=== PATIENT | male | born 1950 | race Caucasian/White ===

== ENCOUNTER 2018-03-29 10:32 | Outpatient (CLI) | payer MEDICARE ==
--- NOTE | 2018-03-29 18:14 | CT ---
CT ABDOMEN AND PELVIS WITH AND WITHOUT CONTRAST: Date: 03/29/18 Multiple axial tomograms obtained through the abdomen and pelvis both pre and post IV contrast. Postc ontrast images were obtained in a portal venous and delayed venous phase. INDICATION: Hematuria. Prostatic hyperplasia. Comparison made to CT abdomen and pelvis dated 12/21/13. FINDINGS: Images through the lung bases are clear. Tiny cyst in the anterior left lobe of the liver is stable. The liver and spleen are otherwise unrema rkable. Pancreas unremarkable. Review of the kidneys on the noncontrast shows no evidence of renal or urinary tract calculus. The ur eters are normal caliber. There is a prominent parapelvic cyst in the left renal pelvis, which is confirmed on the delayed stud y. This cyst measures 4.0 cm width x 2.0 cm. It does displace the renal pelvis and ureter. There is a small exophytic cyst from the left kidney measuring approximately 1.0 cm, which is stable from the prior exam. Ureters appear unremarkable. The urinary bladder is mildly distended. Prostate is enlarged and does impinge on the floor of the bladder. There is question of mild bladder wall thickening. Small bowel loops appear normal. Aorta is calcified, but normal caliber. Nonspecific paraaortic lymph nodes are seen. These are stable from 2014. IMPRESSION: 1. Left parapelvic cyst mildly distorting the left renal pelvis. 2. Small exophytic cyst in the left kidney is stable. 3. Prostatic hypertrophy impinging on and indenting the floor of the bladder. Mild bladder wall thic kening, although the bladder is poorly distended. POS: ANA ROSA
== END 2018-03-29 10:33 | disposition home or self-care (01) ==
LOC: BICCT 10:32
PROVIDERS: ATTEND Urology
DX: N40.1 Benign prostatic hyperplasia with lower urinary tract symptoms (principal); N32.89 Other specified disorders of bladder; Z87.442 Personal history of urinary calculi; Z87.448 Personal history of other diseases of urinary system; R97.20 Elevated prostate specific antigen [PSA]; R31.0 Gross hematuria; R35.1 Nocturia
CPT/HCPCS: 36415; 74178; 82565

== ENCOUNTER 2018-11-22 14:34 | Outpatient (CLI) | payer MEDICARE ==
--- NOTE | 2018-11-23 09:33 | MRI ---
MRI OF THE PROSTATE WITHOUT AND WITH CONTRAST: COMPARISON: None. HISTORY: Elevated PSA. Recent prostate biopsy in March. TECHNIQUE: Multiplanar, multisequence MR images were obtained in the prostate without and with IV contrast. FINDINGS: There is moderate hypertrophy of the central gland consistent with BPH. No suspicious low T2 signal lesion is seen in the prostate. No restricted diffusion or low signal is seen on the ADC map. No ab normal enhancement is seen. The seminal vesicles and neurovascular bundles appear intact. No pelvic adenopathy is seen. No marrow signal abnormality is present. IMPRESSION: PIRADS category 2 - low likelihood that a clinically significant cancer is present. POS: ANA ROSA
== END 2018-11-22 14:35 | disposition home or self-care (01) ==
LOC: TBSIIMAG 14:34
PROVIDERS: ATTEND Urology
DX: R97.20 Elevated prostate specific antigen [PSA] (principal)
CPT/HCPCS: 72197

== ENCOUNTER 2018-12-15 13:47 | Outpatient (CLI) | payer MEDICARE ==
--- NOTE | 2018-12-15 14:43 | ULT ---
Bilateral renal ultrasound CLINICAL INDICATION: Renal cyst COMPARISON: CT abdomen and pelvis on 03/29/2018. FINDINGS: Right kidney: There is no evidence of a renal mass, renal calculus, or hydronephrosis seen. The right kidney measures 11.4 cm in length. Left kidney: There is a small exophytic 0.8 cm anechoic cystic lesion superior pole left kidney demon strating sonographic characteristics most compatible with a cyst. There is an anechoic area present within the region of the renal sinus fat lower pole left kidney shown to represent parapelvic renal c ysts on prior CT examination. No renal calculus is seen. The left kidney measures 11.2 cm in length. Urinary bladder: Distended and demonstrates normal sonographic appearance. The ureteral jets are seen bilaterally on color flow evaluation. The prostate gland does appear prominent in size. IMPRESSION: 1. Normal-appearing right kidney. 2. Inferior pole left renal parapelvic cysts with small exophytic superior pole left renal cyst. 3. Prominence of the prostate gland. This is better imaged and evaluated on prior CT exam.
== END 2018-12-15 13:48 | disposition home or self-care (01) ==
LOC: BICULT 13:47
PROVIDERS: ATTEND Urology
DX: N28.1 Cyst of kidney, acquired (principal); Z87.448 Personal history of other diseases of urinary system; Z87.442 Personal history of urinary calculi
CPT/HCPCS: 76770

== ENCOUNTER 2019-01-04 06:52 | Inpatient (IN) | payer MEDICARE ==
[2019-01-04] MEDS ORDERED: cefTRIAXone\\ROCEPHIN 2 GM VIAL ONE (07:30)
[2019-01-04] MEDS ORDERED: Sodium Chloride 0.9% 100 ML ONE (07:30)
[2019-01-04] MEDS ORDERED: Scopolamine 1.5 mg/72 hour Patch ONE (07:59)
[2019-01-04] MEDS ORDERED: Fentanyl 250 MCG/5 ML VIAL ONE (11:00)
[2019-01-04] MEDS ORDERED: diphenhydrAMINE 50 MG/ML VIAL ONE (11:38)
[2019-01-04] MEDS ORDERED: Lidocaine 1% PF 5 ML VIAL ONE (11:38)
[2019-01-04] MEDS ORDERED: Ondansetron PF 4 MG/2 ML Vial ONE (11:38)
[2019-01-04] MEDS ORDERED: ePHEDrine 50 MG/ML VIAL ONE (11:38)
[2019-01-04] MEDS ORDERED: Rocuronium Bromide 10 MG/ML (10ML VIAL) ONE (11:38)
[2019-01-04] MEDS ORDERED: PHENYLEPHRINE-NS 100 MCG/ML 10 ML SYRINGE ONE (11:38)
[2019-01-04] MEDS ORDERED: Dexamethasone 20 MG/5 ML VIAL ONE (11:38)
[2019-01-04] MEDS ORDERED: Glycopyrrolate 0.2 MG/ML 5 ML SYRINGE ONE (11:38)
[2019-01-04] MEDS ORDERED: PROPOFOL 200 MG/20 ML VIAL ONE (11:38)
[2019-01-04] MEDS ORDERED: Morphine 4 MG/ML VIAL SLOW IVP PRN ×2 (13:37)
[2019-01-04] MEDS ORDERED: Acetaminophen 500 MG TAB PO PRN (13:37)
[2019-01-04] MEDS ORDERED: diphenhydrAMINE 50 MG/ML VIAL IVP PRN (13:37)
[2019-01-04] MEDS ORDERED: Bisacodyl 10 MG SUPP PR PRN (13:37)
[2019-01-04] MEDS ORDERED: Mag-Al 1200 mg/1200 mg/30 ML UDCUP PO PRN (13:37)
[2019-01-04] MEDS ORDERED: HYDROcodone/Acetaminophen 5/325 mg Tablet PO PRN ×2 (13:37)
[2019-01-04 14:34] LABS: #Lymphocytes 0.7 thou/uL (1.20-3.40); #Monocytes 0.2 thou/uL (0.11-0.59); #Neutrophils 10.7 thou/uL (1.40-6.50); %Basophils 0.2 % (0.0-1.0); %Eosinophils 0.2 % (0.0-10.0); %Lymphocytes 6.2 % (21.0-51.0); %Monocytes 1.4 % (0.0-10.0); Hemoglobin 13.9 g/dL (14.0-18.0); Mean Corpuscular HGB CONC 32.7 g/dL (32.0-36.0); Mean Corpuscular Hemoglobin 29.5 pg (27.0-31.0); Mean Corpuscular Volume 90.3 fL (78.0-98.0); Platelet Count 189 thou/uL (130-400); Red Blood Cell (RBC) Count 4.71 mill/uL (4.70-6.10); White Blood Cell (WBC) Count 11.6 thou/uL (4.8-10.8)
--- NOTE | 2019-01-04 14:36 | OP ---
DATE OF PROCEDURE: 01/04/2019 PREOPERATIVE DIAGNOSES: 1. A 68-year-old male with history of severe BPH symptoms, unable to tolerate Flomax. 2. History of recurrent prostatitis. 3. History of elevated PSA, biopsy negative for malignancy x2. 4. MRI demonstrating no suspicious lesion. POSTOPERATIVE DIAGNOSES: 1. A 68-year-old male with history of severe BPH symptoms, unable to tolerate Flomax. 2. History of recurrent prostatitis. 3. History of elevated PSA, biopsy negative for malignancy x2. 4. MRI demonstrating no suspicious lesion. PROCEDURES PERFORMED: Cystoscopy, transurethral resection of prostate. ANESTHESIA: General. COMPLICATIONS: None apparent. DISPOSITION: To recovery room in stable condition. IV FLUIDS: 1600 mL. ESTIMATED BLOOD LOSS: 500 mL. SPECIMEN: TUR of prostate. INTRAOPERATIVE FINDINGS: Trilobar hyperplasia of the prostate with small median lobe, severely obstructing lateral lobes. Urethra grossly unremarkable. INDICATIONS FOR PROCEDURE AND HISTORY: Mr. Briones is a pleasant 68-year-old male with history of elevated PSA, chronic prostatitis, previously followed by Dr. Nunes. He underwent prostate biopsy x2, demonstrating no evidence of malignancy. MRI 3T negative for enhancing lesion of concern. He is unable to tolerate alpha antagonist due to severe nasal congestion, nose bleeds. He was unable to tolerate Rapaflo as well, and he has been managed with Avodart only. As his biopsy and MRI are negative for malignancy, he desires to proceed with TURP. I did obtain a volume study and due to enlarged prostate volume of significant size, he is not a candidate for UroLift. Therefore, presents for TURP. Risks and complications and indications for the procedure were reviewed with him in detail including, but not limited to, bleeding, pain, infection, injury to adjacent organs, urosepsis, bladder neck contracture, urethral stricture, clot retention, urethral/bladder injury, sepsis , incontinence. All questions were answered to his satisfaction. He desired to proceed. DESCRIPTION OF PROCEDURE: After an informed consent was signed, the patient was taken to the operating room, placed in a dorsal lithotomy position with the genital area prepped and draped in the usual surgical sterile fashion. Bilateral NAHOMI hose, SCDs, and broad-spectrum antibiotics were provided. A 21-Djiboutian cystoscope was utilized for cystoscopy, which demonstrated trilobar hyperplasia of the prostate with a small intravesical median lobe. He does have severely obstructing lateral lobes with high median bar. The UOs were identified somewhat close to the median lobe component and this was kept out of harm's way the entire time. At this time, we transitioned to a 26-Djiboutian resectoscope with a visual obturator, passed to the bladder under visual guidance. We then transitioned to a Gyrus bipolar, and transurethral resection of the prostate was performed. We took the median lobe down first, then proceeded to perform lateral resection in a classic Ebony fashion. He did have significant oozing throughout the procedure and this is likely reflective of a history of chronic prostatitis. However, we did obtain good hemostasis throughout the procedure until the end with no significant EBL of concern. His median lobe was taken down. We proceeded to take down his lateral lobes that are obstructing. At the end of the procedure, he had a nice wide bladder neck. All prostatic chips were evacuated with StemCyte evacuator. A 22-Djiboutian, 3-way, 30 mL was able to be passed without significant issues. A 30 mL insufflated, attached to gravity, and CBI at a low rate demonstrating light pink to clear urine. He will be monitored overnight with CBI. Pending urine output, we will consider voiding trial tomorrow morning with CBI held. Job ID: [id number] [facility]
[2019-01-04] MEDS ORDERED: B & O ONE (14:48)
[2019-01-04 14:54] LABS: Anion Gap 10 mmol/L (10-20); BUN (Urea Nitrogen) 13 mg/dL (8.4-25.7); Calc. Creatinine Clearance 103 mL/min (70-130); Calcium 8.6 mg/dL (7.8-10.44); Carbon Dioxide 24 mmol/L (23-31); Chloride 111 mmol/L (98-107); Estimated GFR-MDRD Greater than 90; Glucose 125 mg/dL (80-115); Potassium 3.8 mmol/L (3.5-5.1); Sodium 141 mmol/L (136-145)
[2019-01-04] MEDS ORDERED: Fentanyl 100 MCG/2 ML VIAL ONE (14:56)
[2019-01-04] MEDS: Dutasteride 0.5 MG CAP PO SCH (22:04)
[2019-01-04] MEDS: Famotidine/PF 20 mg/2ml Vial SLOW IVP SCH (22:05)
[2019-01-04] MEDS: Docusate 100 MG CAP PO SCH (22:05)
[2019-01-04 22:20] VITALS: BMI 24.3
[2019-01-05] MEDS: Sodium Chloride 0.9% 1,000 ML IV SCH ×4 (00:05→15:10)
[2019-01-05 06:34] LABS: %Eosinophils 0.1 % (0.0-10.0)
[2019-01-05 06:48] LABS: #Lymphocytes 1.5 thou/uL (1.20-3.40); #Monocytes 1.3 thou/uL (0.11-0.59); #Neutrophils 15.8 thou/uL (1.40-6.50); %Basophils 0.1 % (0.0-1.0); %Lymphocytes 8.2 % (21.0-51.0); %Monocytes 6.8 % (0.0-10.0); %Neutrophils 84.9 % (42.0-75.0); Mean Corpuscular HGB CONC 32.2 g/dL (32.0-36.0); Mean Corpuscular Hemoglobin 28.9 pg (27.0-31.0); Mean Corpuscular Volume 89.8 fL (78.0-98.0); Mean Platelet Volume 7.5 fL (7.4-10.4); Platelet Count 210 thou/uL (130-400); Red Blood Cell (RBC) Count 4.82 mill/uL (4.70-6.10); White Blood Cell (WBC) Count 18.6 thou/uL (4.8-10.8)
[2019-01-05 06:56] LABS: Anion Gap 8 mmol/L (10-20); BUN (Urea Nitrogen) 11 mg/dL (8.4-25.7); Calc. Creatinine Clearance 106 mL/min (70-130); Calcium 8.7 mg/dL (7.8-10.44); Carbon Dioxide 25 mmol/L (23-31); Chloride 110 mmol/L (98-107); Estimated GFR-MDRD Greater than 90; Glucose 108 mg/dL (80-115); Potassium 3.9 mmol/L (3.5-5.1); Sodium 139 mmol/L (136-145)
--- NOTE | 2019-01-05 08:28 | PRG ---
DATE OF SERVICE: 01/05/2019 SUBJECTIVE: The patient without complaints, had not required narcotics overnight. Denies fever or chills. Has occasional bladder spasms, however, it resolves with observation. Does not desire medical therapy. OBJECTIVE: VITAL SIGNS: His vital signs are stable at temperature of 98, pulse 56, saturations 98, and blood pressure 117/62. I's and O's not yet calculated by nursing staff. CBI was attempted to be held this morning, however, due to degree of hematuria, it was restarted at a low rate. Currently, demonstrating woody pink-tinged urine. ABDOMEN: Soft, nontender, and nondistended. GENITOURINARY: I held the CBI at bedside, it did become worley red, therefore restarted with immediate clearing at a moderate low rate. I inflated 10 mL more of sterile water with total of 40 mL in the balloon and placed his catheter on a light traction at the level of the bladder neck, CBI restarted. PERTINENT LABORATORY DATA: White count 18; hemoglobin is stable at 14, preop hemoglobin is 13.9; and platelet 210. BUN is 0.8. IMPRESSION AND PLAN: 1. Mr. Briones is a 68-year-old male with history of significant benign prostatic hyperplasia symptoms, unable to tolerate alpha antagonist, managed with Avodart. History of recurrent prostatitis 2. History of elevated PSA, biopsy negative for malignancy. 3. Postop day #1, status post cysto, transurethral resection of the prostate. Intraoperatively, surgery was uneventful, he did have significant vascularity of the prostate, however, good hemostasis was noted post transurethral resection. I will place him on a light traction and observe. H and H are stable, not concerning for acute blood loss. We will likely keep the patient another night. We will make full admit. Job ID: [id number] [facility]
[2019-01-05] MEDS: Famotidine/PF 20 mg/2ml Vial SLOW IVP SCH ×3 (09:50→21:09)
[2019-01-05] MEDS: Docusate 100 MG CAP PO SCH ×2 (09:50→21:05)
[2019-01-05] MEDS: Dutasteride 0.5 MG CAP PO SCH (21:05)
[2019-01-06] MEDS: Sodium Chloride 0.9% 1,000 ML IV SCH ×3 (00:06→07:25)
[2019-01-06 05:05] LABS: Band 3 % (5-11); Hemoglobin 12.8 g/dL (14.0-18.0); Lymphocytes 17 % (21-51); MDiff Complete? YES; Mean Corpuscular HGB CONC 32.8 g/dL (32.0-36.0); Mean Corpuscular Hemoglobin 29.5 pg (27.0-31.0); Mean Platelet Volume 7.3 fL (7.4-10.4); Monocytes 14 % (0-10); Neutrophil 63 % (42-75); Platelet Count 178 thou/uL (130-400); RBC Distribution Width 12.1 % (11.5-14.5); Reactive Lymphocytes 3 % (0-10); Red Blood Cell (RBC) Count 4.34 mill/uL (4.70-6.10); White Blood Cell (WBC) Count 11.3 thou/uL (4.8-10.8)
[2019-01-06 05:23] LABS: Anion Gap 9 mmol/L (10-20); BUN (Urea Nitrogen) 12 mg/dL (8.4-25.7); Calc. Creatinine Clearance 109 mL/min (70-130); Calcium 8.1 mg/dL (7.8-10.44); Carbon Dioxide 23 mmol/L (23-31); Chloride 111 mmol/L (98-107); Estimated GFR-MDRD Greater than 90; Glucose 98 mg/dL (80-115); Potassium 3.6 mmol/L (3.5-5.1); Sodium 139 mmol/L (136-145)
[2019-01-06] MEDS: Docusate 100 MG CAP PO SCH (08:11)
[2019-01-06 08:16] VITALS: TEMP 98
[2019-01-06] MEDS ORDERED: Famotidine 20 MG TAB PO SCH (09:00)
--- NOTE | 2019-01-06 09:22 | PRG ---
DATE OF SERVICE: 01/06/2019 SUBJECTIVE: The patient without complaints. CBI was held this morning at 5 from my request. OBJECTIVE: VITAL SIGNS: Stable. GENERAL: He is afebrile. I's and O's 1700 of urine out. ABDOMEN: Soft, nontender, nondistended. GENITOURINARY: Howard demonstrating clear woody urine. Voiding trial initiated. Catheter removed after bladder filled to sensation to void. He had a strong flow, voided complete pink tinged urine with no significant clots of concern. LABORATORY DATA: Labs this morning, white count 11, hemoglobin stable at 12.8, platelet 178. Creatinine 0.78. Discussed with the patient regarding pathology of TUR demonstrating chronic and acute prostatitis/inflammation BPH. No malignancy. IMPRESSION AND PLAN: Mr. Briones is a 68-year-old male status post TURP, postop day #2. Voiding trial initiated today. He is surgically stable with labs grossly unremarkable. We will monitor the patient today for subsequent voiding trial, hematuria of concern. Anticipate discharge this afternoon. Job ID: [id number]
[2019-01-06 11:11] VITALS: BP 144/73
--- NOTE | 2019-01-06 13:40 | DIS ---
DATE OF ADMISSION: 01/04/2019 DATE OF DISCHARGE: 01/06/2019 ADMITTING DIAGNOSIS: Benign prostatic hyperplasia, refractory benign prostatic hyperplasia symptoms. PROCEDURES PERFORMED: Cystoscopy, transurethral resection of prostate. DISPOSITION: Home to self-care with good assist. DISCHARGE MEDICATIONS: The patient is to resume his home medications, continue Avodart for now. CONDITION: Stable. FOLLOWUP: followup appointment next for peak flow PVR. DISCHARGE INSTRUCTIONS: Increase water consumption. No heavy lifting or straddling activity. BRIEF HOSPITAL COURSE: Mr. Briones is a pleasant 68-year-old male with history of elevated PSA and prostate biopsy negative for malignancy. The patient has severe BPH like symptoms refractory to Avodart. Unable to tolerate alpha antagonist due to nasal congestion and fatigue. He underwent transurethral resection of prostate uneventfully. On postop day #1, his CBI was held; however, had persistent hematuria. Therefore, we placed the catheter on light traction for few hours. This improved his hematuria significantly. It was taken off light tension, then observed overnight on CBI. We subsequently held the CBI this morning, with woody pink-tinged urine. He underwent successful voiding trial with PVR approximately 80 mL, not of concern. Serial voided urine at the bedside is pink-tinged woody with no passage of clots. The patient feels well enough to go home. His pathology was reviewed, demonstrating no evidence of malignancy. Discharge medications include Omnicef for course of 5 days sent to his patient's pharmacy, he is to resume his home medications. Job ID: [id number] [facility]
== END 2019-01-06 14:40 | disposition home or self-care (01) | DRG 714 ==
LOC: SDC 06:52 → OBSVTOIN 13:37 → SJJU 13:37
PROVIDERS: ADMIT Urology; ATTEND Urology
PROC: 0VT08ZZ Resection of Prostate, Via Natural or Artificial Opening Endoscopic (ICD-10-PCS; principal; 2019-01-04)
DX: N40.0 Benign prostatic hyperplasia without lower urinary tract symptoms (principal); N41.1 Chronic prostatitis; R09.81 Nasal congestion; R31.9 Hematuria, unspecified
CPT/HCPCS: 36415; 80048; 85007; 85025; 85027; 86850; 86900; 86901; 88305; J0131; J0696; J1100; J1200; J1956; J2001; J2405; J2704; J3010; J3490; S0028

== ENCOUNTER 2020-05-27 08:13 | Outpatient (CLI) | payer MEDICARE ==
[2020-05-27 09:05] LABS: Estimated GFR-MDRD - POC Greater than 90
--- NOTE | 2020-05-27 12:51 | MRI ---
MR OF THE PELVIS WITH AND WITHOUT CONTRAST INDICATION: 69-year-old male with history of elevated PSA status post TURP procedure in 2019. COMPARISON: Prior MR of the pelvis with and without contrast dated December 02, 2018 TECHNIQUE: Multiplanar, multisequence MR images were obtained of the pelvis with and without IV contr ast. 18 cc of MultiHance was utilized for the examination. The examination was reviewed on a separate [employer] 3-D workstation for multiplanar metric evaluation. FINDINGS: Prostate size: The prostate measured 5.8 x 5.3 x 5.6cm. 80.85 cc. There is a central TURP defect s een within the prostate gland. This is new from the prior exam. Peripheral zone: No area of restricted diffusion is seen within the peripheral zone. There are feathe rlike regions of diminished T2 signal seen throughout the peripheral zone. Central zone: There are numerous prominent BPH nodules. There is a central TURP defect within the pro state gland. No suspicious focal lesion is identified. Neural vasculature: No evidence of neurovascular invasion Regional lymphadenopathy: None Dynamic contrast enhancement: There is diffuse increased enhancement seen within the peripheral zone bilaterally which is nonspecific but can be seen with prostatitis. No suspicious enhancement pattern is grossly evident. Osseous structures: No suspicious osseous lesion is identified. Additional findings: None.. IMPRESSION: 1. PIRADS 2- Low (clinically significant cancer is unlikely to be present.) 2. Feather like regions of diminished T2 signal within the peripheral zone with increased enhancement can be seen with prostatitis.
[2020-05-27] MEDS ORDERED: Magnevist 469MG/ML 20 ML VIAL ONE (13:16)
== END 2020-05-27 08:14 | disposition home or self-care (01) ==
LOC: TBSIIMAG 08:13
PROVIDERS: ATTEND Urology
DX: R97.20 Elevated prostate specific antigen [PSA] (principal)
CPT/HCPCS: 72197; 82565; A9579

== ENCOUNTER 2021-04-24 07:56 | Outpatient (CLI) | payer MEDICARE | END 2021-04-24 07:57 | disposition home or self-care (01) | LOC: TBSIIMAG 07:56 | PROVIDERS: ATTEND Urology | DX: R97.20 Elevated prostate specific antigen [PSA] (principal); Z80.42 Family history of malignant neoplasm of prostate | CPT/HCPCS: 72197 ==

== ENCOUNTER 2021-10-30 15:13 | Outpatient (CLI) | payer MEDICARE ==
[2021-10-30 22:49] LABS: SARS-CoV-2 PCR by NAA Not Detected (NotDetected)
== END 2021-10-30 15:14 | disposition home or self-care (01) ==
LOC: LABBT 15:13
PROVIDERS: ATTEND Internal Medicine Gastroenterology
DX: K21.9 Gastro-esophageal reflux disease without esophagitis (principal); R13.10 Dysphagia, unspecified; Z20.822 Contact with and (suspected) exposure to COVID-19
CPT/HCPCS: U0003; U0005

== ENCOUNTER 2021-11-03 08:47 | Outpatient (CLI) | payer MEDICARE | END 2021-11-03 08:48 | disposition home or self-care (01) | LOC: RAD 08:47 | PROVIDERS: ATTEND Internal Medicine Gastroenterology | DX: K21.9 Gastro-esophageal reflux disease without esophagitis (principal); R13.10 Dysphagia, unspecified; K22.89 Other specified disease of esophagus; K22.4 Dyskinesia of esophagus | CPT/HCPCS: 74220 ==

== ENCOUNTER 2024-03-09 09:24 | Outpatient (CLI) | payer MEDICARE | END 2024-03-09 09:25 | disposition home or self-care (01) | LOC: BICCT 09:24 | PROVIDERS: ATTEND Urology | DX: N40.1 Benign prostatic hyperplasia with lower urinary tract symptoms (principal); R31.9 Hematuria, unspecified; N28.1 Cyst of kidney, acquired; K76.89 Other specified diseases of liver; N32.89 Other specified disorders of bladder; Z87.442 Personal history of urinary calculi; Z98.890 Other specified postprocedural states | CPT/HCPCS: 36415; 74178; 82565 ==

== ENCOUNTER 2025-04-18 08:02 | Outpatient (CLI) | payer MEDICARE | END 2025-04-18 08:03 | disposition home or self-care (01) | LOC: SCSMRI 08:02 | PROVIDERS: ATTEND Urology | DX: N40.1 Benign prostatic hyperplasia with lower urinary tract symptoms (principal); R97.20 Elevated prostate specific antigen [PSA] | CPT/HCPCS: 72197 ==